=== PATIENT | female | born 1965 | race Caucasian/White ===

== ENCOUNTER 2023-08-14 08:21 | Inpatient (IN) | payer BC ==
[2023-08-14 08:45] LABS: #Basophils 0.1 thou/uL (0.0-0.2); #Eosinphils 0.1 thou/uL (0.0-0.7); #Monocytes 0.8 thou/uL (0.11-0.59); #Neutrophils 3.6 thou/uL (1.40-6.50); %Basophils 0.8 % (0.0-1.0); %Eosinophils 2.3 % (0.0-10.0); %Lymphocytes 25.8 % (21.0-51.0); %Monocytes 12.3 % (0.0-10.0); %Neutrophils 58.6 % (42.0-75.0); Hemoglobin 13.1 g/dL (12.0-16.0); Mean Corpuscular HGB CONC 33.6 g/dL (32.0-36.0); Mean Corpuscular Hemoglobin 32.1 pg (27.0-31.0); Mean Corpuscular Volume 95.6 fl (78.0-98.0); Platelet Count 230 10x3/uL (130-400); RBC Distribution Width 13.9 % (11.5-14.5); Red Blood Cell (RBC) Count 4.08 mill/uL (4.20-5.40); White Blood Cell (WBC) Count 6.2 10x3/uL (4.8-10.8)
[2023-08-14 08:59] LABS: INR-International Normal Ratio 0.9; Prothrombin Time 12.9 sec (12.0-14.7)
[2023-08-14] MEDS ORDERED: Iopamidol-370 76% 500 ML MDV (1 ML CHARGE) ONE (09:00)
[2023-08-14 09:01] LABS: ALT (SGPT) 607 U/L (8-55); AST (SGOT) 509 U/L (5-34); Albumin 4.1 g/dL (3.5-5.0); Alkaline Phosphatase 115 U/L (40-110); Anion Gap 14 mmol/L (10-20); BUN (Urea Nitrogen) 8 mg/dL (9.8-20.1); Bilirubin, Total 1.1 mg/dL (0.2-1.2); CK (CPK) 44 U/L (29-168); Calc. Creatinine Clearance 0 mL/min (70-130); Calcium 10.1 mg/dL (7.8-10.44); Carbon Dioxide 23 mmol/L (22-29); Chloride 106 mmol/L (98-107); Estimated GFR 70; Globulin 2.7 g/dL (2.4-3.5); Glucose 99 mg/dL (70-105); Potassium 4.1 mmol/L (3.5-5.1); Protein, Total 6.8 g/dL (6.0-8.3); Sodium 139 mmol/L (136-145)
[2023-08-14] MEDS ORDERED: Aspirin Chewable 81 MG TAB ONE (09:16)
[2023-08-14 09:26] LABS: Troponin I Less than 0.010 ng/mL (< 0.028)
[2023-08-14] MEDS ORDERED: Acetaminophen 500 MG TAB ONE (09:56)
[2023-08-14] MEDS ORDERED: Ondansetron ODT 4 MG TAB PO PRN (11:51)
[2023-08-14] MEDS ORDERED: hydrALAZINE 20 MG/ML VIAL SLOW IVP PRN (11:51)
[2023-08-14] MEDS ORDERED: Ondansetron PF 4 MG/2 ML Vial IVP PRN (11:51)
[2023-08-14] MEDS ORDERED: Albuterol 200 PUFF (6.7GM INHALER) INH PRN (11:55)
[2023-08-14] MEDS ORDERED: Lorazepam 2 MG/ML VIAL SLOW IVP PRN (12:05)
[2023-08-14 12:43] VITALS: BMI 26.6
[2023-08-14 14:06] LABS: HBCM Index 0.15 S/CO (0-0.79); HBSAg Index 0.25 S/CO (0-0.99); Hep A IgM AB Non-Reactive S/CO (NonReactive); Hep A IgM S/CO 0.51 S/CO (0-0.79); Hep B Surf Ag Non-Reactive S/CO (NonReactive); Hep C IgG Ab Non-Reactive S/CO (NonReactive); Hep C Index 0.16 S/CO (0-0.79); Hepatitis B Core IgM Abs Non-Reactive S/CO (NonReactive)
[2023-08-14] MEDS: Atorvastatin Calcium 40 MG TAB PO SCH (20:45)
[2023-08-14] MEDS: Ranolazine 500 MG ER.TAB PO SCH (20:46)
[2023-08-14] MEDS: Topiramate 25 MG TAB PO SCH (20:46)
[2023-08-14] MEDS: lamoTRIgine 100 MG TAB PO SCH (20:46)
[2023-08-15 04:56] LABS: Hemoglobin A1c 4.6 % (4.0-6.0)
[2023-08-15 05:08] LABS: CRP (Inflammatory) Less than 0.50 mg/dL (= or < 0.5); Cardiac Risk 4.4 (Less than 4.5); Cholesterol 202 mg/dl (< 200 Desired); HDL Cholesterol 46 mg/dL (>60 Neg Risk); LDL Cholesterol, Calculated 139 mg/dL; Triglycerides 86 mg/dL (Less than 150)
[2023-08-15] MEDS: Acetaminophen 325 MG TAB PO PRN ×2 (05:19→23:55)
[2023-08-15] MEDS: lamoTRIgine 100 MG TAB PO SCH ×2 (09:39→20:27)
[2023-08-15] MEDS: Aspirin 81 mg Enteric Coated Tablet PO SCH (09:40)
[2023-08-15] MEDS: Ranolazine 500 MG ER.TAB PO SCH ×2 (09:40→20:28)
[2023-08-15] MEDS: Topiramate 25 MG TAB PO SCH ×2 (09:40→20:28)
[2023-08-15] MEDS: Atorvastatin Calcium 40 MG TAB PO SCH (20:28)
[2023-08-16] MEDS: Ranolazine 500 MG ER.TAB PO SCH (08:15)
[2023-08-16] MEDS: Aspirin 81 mg Enteric Coated Tablet PO SCH (08:16)
[2023-08-16] MEDS: Topiramate 25 MG TAB PO SCH (08:16)
[2023-08-16] MEDS: lamoTRIgine 100 MG TAB PO SCH (08:16)
[2023-08-16 13:01] LABS: ALT (SGPT) 526 U/L (8-55); AST (SGOT) 469 U/L (5-34); Albumin 3.8 g/dL (3.5-5.0); Alkaline Phosphatase 109 U/L (40-110); Anion Gap 11 mmol/L (10-20); BUN (Urea Nitrogen) 8 mg/dL (9.8-20.1); Bilirubin, Total 0.8 mg/dL (0.2-1.2); Calc. Creatinine Clearance 65 mL/min (70-130); Calcium 9.3 mg/dL (7.8-10.44); Carbon Dioxide 23 mmol/L (22-29); Chloride 107 mmol/L (98-107); Estimated GFR 75; Globulin 2.7 g/dL (2.4-3.5); Glucose 86 mg/dL (70-105); Magnesium 1.8 mg/dL (1.6-2.6); Potassium 3.7 mmol/L (3.5-5.1); Protein, Total 6.5 g/dL (6.0-8.3); Sodium 137 mmol/L (136-145)
[2023-08-16 16:33] VITALS: BP 103/60; TEMP 97.7
== END 2023-08-16 16:35 | disposition home or self-care (01) | DRG 103 ==
LOC: ERS 08:21 → ERHOLD 09:39 → 2SE 18:04 → OBSVTOIN 08-16 08:48
PROVIDERS: ADMIT Family Medicine; ATTEND Internal Medicine
DX: G43.909 Migraine, unspecified, not intractable, without status migrainosus (principal); I47.1 Supraventricular tachycardia; R29.898 Other symptoms and signs involving the musculoskeletal system; G40.909 Epilepsy, unspecified, not intractable, without status epilepticus; J44.9 Chronic obstructive pulmonary disease, unspecified; R47.81 Slurred speech; F10.20 Alcohol dependence, uncomplicated; N18.2 Chronic kidney disease, stage 2 (mild); R47.1 Dysarthria and anarthria; Z88.1 Allergy status to other antibiotic agents; Z88.2 Allergy status to sulfonamides; Z88.8 Allergy status to other drugs, medicaments and biological substances; Z86.16 Personal history of COVID-19; Z90.710 Acquired absence of both cervix and uterus; Z98.890 Other specified postprocedural states; Z90.49 Acquired absence of other specified parts of digestive tract; Z95.0 Presence of cardiac pacemaker; Z87.891 Personal history of nicotine dependence; Z79.82 Long term (current) use of aspirin; Z79.899 Other long term (current) drug therapy
CPT/HCPCS: 36415; 70450; 70496; 70498; 71045; 76705; 80053; 80061; 80074; 82140; 82550; 82977; 83036; 83735; 84443; 84484; 85025; 85610; 85730; 86140; 93005; 93306; 94760; G0378; Q9967

== ENCOUNTER 2023-09-19 07:24 | Outpatient (CLI) | payer BC | END 2023-09-19 07:25 | disposition home or self-care (01) | LOC: MRI 07:24 | PROVIDERS: ATTEND Psychiatry & Neurology Neurology | DX: G40.909 Epilepsy, unspecified, not intractable, without status epilepticus (principal); G43.009 Migraine without aura, not intractable, without status migrainosus; G45.9 Transient cerebral ischemic attack, unspecified; R42 Dizziness and giddiness; R47.1 Dysarthria and anarthria | CPT/HCPCS: 70553 ==

== ENCOUNTER 2023-10-18 07:54 | Outpatient (CLI) | payer BC | END 2023-10-18 07:55 | disposition home or self-care (01) | LOC: CT 07:54 | PROVIDERS: ATTEND Internal Medicine | DX: R76.8 Other specified abnormal immunological findings in serum (principal); R77.2 Abnormality of alphafetoprotein; N20.0 Calculus of kidney | CPT/HCPCS: 74170 ==